=== PATIENT | female | born 1980 | race African-American/Black ===

== ENCOUNTER 2024-04-24 19:10 | Inpatient (IN) | payer OTHER, SELFPAY ==
[2024-04-24 21:18] LABS: Hematocrit 38.7 % (36.0-47.0); Hemoglobin 12.8 g/dL (12.0-16.0); Mean Corpuscular HGB CONC 33.1 g/dL (32.0-36.0); Mean Corpuscular Hemoglobin 30.8 pg (27.0-31.0); Platelet Count 190 10x3/uL (130-400); RBC Distribution Width 13.6 % (11.5-14.5); Red Blood Cell (RBC) Count 4.16 mill/uL (4.20-5.40)
[2024-04-24 21:31] LABS: ALT (SGPT) 13 U/L (8-55); AST (SGOT) 12 U/L (5-34); Albumin 3.7 g/dL (3.5-5.0); Alkaline Phosphatase 49 U/L (40-110); Anion Gap 19 mmol/L (10-20); BUN (Urea Nitrogen) 8 mg/dL (7.0-18.7); Bilirubin, Total 0.5 mg/dL (0.2-1.2); Calc. Creatinine Clearance 0 mL/min (70-130); Calcium 9.8 mg/dL (7.8-10.44); Carbon Dioxide 17 mmol/L (22-29); Chloride 108 mmol/L (98-107); Estimated GFR 92; Glucose 97 mg/dL (70-105); Potassium 4.5 mmol/L (3.5-5.1); Protein, Total 7.7 g/dL (6.0-8.3); Sodium 139 mmol/L (136-145)
[2024-04-24 22:04] LABS: Band 1 % (5-11); Lymphocytes 10 % (21-51); Monocytes 4 % (0-10); Neutrophil 85 % (42-75); Platelet Adequacy Comment Platelets Normal; Polychromasia SLIGHT = 2-3 cells HPF (0-2); Tear Drops SLIGHT = 2-5 cells HPF (0-1)
[2024-04-25] MEDS ORDERED: fentaNYL 50 mcg/mL 1 mL Vial ONE (01:55)
[2024-04-25] MEDS ORDERED: Ketorolac Tromethamine 30 MG (1 mL) VIAL ONE (01:56)
[2024-04-25] MEDS ORDERED: Cefepime 1 GM VIAL ONE (02:44)
[2024-04-25] MEDS ORDERED: Sodium Chloride 0.9% 100 ML ONE (02:45)
[2024-04-25 03:33] VITALS: BMI 33.3
[2024-04-25] MEDS: Vancomycin (BATCH) 2.5 GM in Premix 1 BAG IVPB SCH (05:01)
[2024-04-25] MEDS ORDERED: Ondansetron ODT 4 MG TAB PO PRN (05:11)
[2024-04-25] MEDS ORDERED: Ondansetron PF 4 MG/2 ML Vial IVP PRN (05:11)
[2024-04-25] MEDS ORDERED: Acetaminophen 650 MG Suppository PR PRN (05:11)
[2024-04-25 05:55] LABS: #Basophils Less than 0.03 10x3/uL (0.0-0.2); %Basophils 0.2 % (0.0-1.0); %Eosinophils 0.4 % (0.0-10.0); %Lymphocytes 15.6 % (21.0-51.0); %Monocytes 5.8 % (0.0-10.0); %Neutrophils 77.2 % (42.0-75.0); Hematocrit 37.3 % (36.0-47.0); Hemoglobin 12.1 g/dL (12.0-16.0); Mean Corpuscular HGB CONC 32.4 g/dL (32.0-36.0); Mean Corpuscular Hemoglobin 31.2 pg (27.0-31.0); Mean Corpuscular Volume 96.1 fL (78.0-98.0); Mean Platelet Volume 12.1 fL (7.4-10.4); Platelet Count 152 10x3/uL (130-400); RBC Distribution Width 13.7 % (11.5-14.5); Red Blood Cell (RBC) Count 3.88 mill/uL (4.20-5.40)
[2024-04-25 06:07] LABS: Hemoglobin A1c 5.8 % (4.0-6.0)
[2024-04-25 06:09] LABS: Anion Gap 16 mmol/L (10-20); BUN (Urea Nitrogen) 9 mg/dL (7.0-18.7); Calc. Creatinine Clearance 142 mL/min (70-130); Calcium 9.5 mg/dL (7.8-10.44); Carbon Dioxide 20 mmol/L (22-29); Chloride 108 mmol/L (98-107); Estimated GFR 92; Glucose 82 mg/dL (70-105); Potassium 3.5 mmol/L (3.5-5.1); Sodium 140 mmol/L (136-145)
[2024-04-25] MEDS: Cefepime 2 GM VIAL ONE (08:03)
[2024-04-25] MEDS: Enoxaparin 40 MG (0.4 mL) SYRINGE SC SCH (08:03)
[2024-04-25] MEDS: Cefepime 2 GM in Sodium Chloride 0.9% 100 ML IVPB SCH (08:04)
[2024-04-25] MEDS: Acetaminophen 325 MG TAB PO PRN (08:04)
[2024-04-25] MEDS: Ketorolac Tromethamine 30 MG (1 mL) VIAL IVP PRN (10:49)
[2024-04-25] MEDS: Morphine 2 MG/ML VIAL SLOW IVP SCH (11:35)
[2024-04-25] MEDS: predniSONE 20 MG TAB PO SCH (16:49)
[2024-04-25] MEDS ORDERED: Vancomycin (BATCH) 1.25 GM in Premix 1 BAG IVPB SCH (17:00)
[2024-04-25] MEDS: Vancomycin (BATCH) 1.5 GM in Premix 1 BAG IVPB SCH (17:20)
[2024-04-25] MEDS: Acetaminophen/Codeine 30-300mg Tablet PO SCH (20:15)
[2024-04-25] MEDS: Acetaminophen 325 MG TAB PO SCH (20:16)
[2024-04-26 06:05] LABS: #Basophils Less than 0.03 10x3/uL (0.0-0.2); #Eosinphils Less than 0.03 10x3/uL (0.0-0.7); %Basophils 0.2 % (0.0-1.0); %Eosinophils 0.1 % (0.0-10.0); %Lymphocytes 11.2 % (21.0-51.0); %Monocytes 3.8 % (0.0-10.0); %Neutrophils 84.3 % (42.0-75.0); Hematocrit 34.6 % (36.0-47.0); Hemoglobin 11.4 g/dL (12.0-16.0); Mean Corpuscular HGB CONC 32.9 g/dL (32.0-36.0); Mean Corpuscular Hemoglobin 31.3 pg (27.0-31.0); Mean Corpuscular Volume 95.1 fL (78.0-98.0); Mean Platelet Volume 12.5 fL (7.4-10.4); Platelet Count 146 10x3/uL (130-400); RBC Distribution Width 13.4 % (11.5-14.5); Red Blood Cell (RBC) Count 3.64 mill/uL (4.20-5.40)
[2024-04-26 06:16] LABS: Vancomycin, Random 15.9 ug/mL (See Comment)
[2024-04-26 06:22] LABS: Anion Gap 13 mmol/L (10-20); BUN (Urea Nitrogen) 12 mg/dL (7.0-18.7); Calc. Creatinine Clearance 147 mL/min (70-130); Calcium 8.9 mg/dL (7.8-10.44); Carbon Dioxide 20 mmol/L (22-29); Chloride 108 mmol/L (98-107); Estimated GFR 96; Glucose 102 mg/dL (70-105); Potassium 4.1 mmol/L (3.5-5.1); Sodium 137 mmol/L (136-145)
[2024-04-26] MEDS: predniSONE 20 MG TAB PO SCH (08:28)
[2024-04-26] MEDS: Morphine 2 MG/ML VIAL SLOW IVP PRN (11:57)
[2024-04-26] MEDS: Acetaminophen/Codeine 30-300mg Tablet PO PRN (14:41)
[2024-04-26 15:37] VITALS: BMI 33.3
[2024-04-27 04:53] LABS: #Basophils 0.04 10x3/uL (0.0-0.2); %Basophils 0.4 % (0.0-1.0); %Eosinophils 0.4 % (0.0-10.0); %Lymphocytes 16.7 % (21.0-51.0); %Monocytes 5.8 % (0.0-10.0); %Neutrophils 76.2 % (42.0-75.0); Hematocrit 35.1 % (36.0-47.0); Hemoglobin 11.6 g/dL (12.0-16.0); Mean Corpuscular Hemoglobin 30.6 pg (27.0-31.0); Mean Corpuscular Volume 92.6 fL (78.0-98.0); Mean Platelet Volume 12.2 fL (7.4-10.4); Platelet Count 144 10x3/uL (130-400); RBC Distribution Width 13.4 % (11.5-14.5); Red Blood Cell (RBC) Count 3.79 mill/uL (4.20-5.40)
[2024-04-27 05:14] LABS: Anion Gap 14 mmol/L (10-20); Calc. Creatinine Clearance 157 mL/min (70-130); Calcium 8.6 mg/dL (7.8-10.44); Carbon Dioxide 20 mmol/L (22-29); Chloride 110 mmol/L (98-107); Estimated GFR 104; Glucose 82 mg/dL (70-105); Potassium 3.5 mmol/L (3.5-5.1); Sodium 140 mmol/L (136-145)
[2024-04-27 05:26] LABS: BUN (Urea Nitrogen) 8 mg/dL (7.0-18.7)
[2024-04-27] MEDS: traMADol HCl 50 MG TAB PO PRN (19:28)
[2024-04-28 06:15] LABS: Anion Gap 13 mmol/L (10-20); BUN (Urea Nitrogen) 7 mg/dL (7.0-18.7); Calc. Creatinine Clearance 164 mL/min (70-130); Calcium 8.6 mg/dL (7.8-10.44); Carbon Dioxide 21 mmol/L (22-29); Chloride 105 mmol/L (98-107); Estimated GFR 109; Glucose 80 mg/dL (70-105); Potassium 3.4 mmol/L (3.5-5.1); Sodium 136 mmol/L (136-145)
[2024-04-28 07:33] LABS: #Basophils 0.04 10x3/uL (0.0-0.2); %Basophils 0.4 % (0.0-1.0); %Eosinophils 0.6 % (0.0-10.0); %Lymphocytes 19.9 % (21.0-51.0); %Monocytes 7.3 % (0.0-10.0); %Neutrophils 70.7 % (42.0-75.0); Hematocrit 36.1 % (36.0-47.0); Hemoglobin 11.7 g/dL (12.0-16.0); Mean Corpuscular HGB CONC 32.4 g/dL (32.0-36.0); Mean Corpuscular Volume 95.5 fL (78.0-98.0); Mean Platelet Volume 12.4 fL (7.4-10.4); Platelet Count 137 10x3/uL (130-400); RBC Distribution Width 13.6 % (11.5-14.5); Red Blood Cell (RBC) Count 3.78 mill/uL (4.20-5.40)
[2024-04-28] MEDS: Potassium Chloride 20 MEQ TAB PO SCH (09:42)
[2024-04-28] MEDS ORDERED: diphenhydrAMINE 25 MG CAP PO PRN (19:01)
[2024-04-29 06:57] LABS: #Basophils 0.04 10x3/uL (0.0-0.2); %Basophils 0.3 % (0.0-1.0); %Eosinophils 0.7 % (0.0-10.0); %Lymphocytes 16.6 % (21.0-51.0); %Monocytes 5.5 % (0.0-10.0); %Neutrophils 76.4 % (42.0-75.0); Mean Corpuscular HGB CONC 33.3 g/dL (32.0-36.0); Mean Corpuscular Hemoglobin 30.8 pg (27.0-31.0); Mean Corpuscular Volume 92.3 fL (78.0-98.0); Mean Platelet Volume 12.8 fL (7.4-10.4); Platelet Count 160 10x3/uL (130-400); RBC Distribution Width 13.6 % (11.5-14.5)
[2024-04-29 07:42] LABS: Anion Gap 15 mmol/L (10-20); BUN (Urea Nitrogen) 9 mg/dL (7.0-18.7); Calc. Creatinine Clearance 157 mL/min (70-130); Calcium 8.9 mg/dL (7.8-10.44); Carbon Dioxide 21 mmol/L (22-29); Chloride 108 mmol/L (98-107); Estimated GFR 104; Glucose 101 mg/dL (70-105); Potassium 3.5 mmol/L (3.5-5.1); Sodium 140 mmol/L (136-145)
[2024-04-29 12:09] VITALS: BP 135/91; TEMP 97.2
== END 2024-04-29 15:42 | disposition home or self-care (01) | DRG 603 ==
LOC: ERS 19:10 → SURG A 04-25 02:33
PROVIDERS: ADMIT Student in an Organized Health Care Education/Training Program; ATTEND Internal Medicine
DX: L88 Pyoderma gangrenosum (principal); M33.13 Other dermatomyositis without myopathy; L97.929 Non-pressure chronic ulcer of unspecified part of left lower leg with unspecified severity; B96.5 Pseudomonas (aeruginosa) (mallei) (pseudomallei) as the cause of diseases classified elsewhere; B95.61 Methicillin susceptible Staphylococcus aureus infection as the cause of diseases classified elsewhere; E87.6 Hypokalemia; D72.829 Elevated white blood cell count, unspecified; M19.90 Unspecified osteoarthritis, unspecified site; Z79.52 Long term (current) use of systemic steroids; Z87.891 Personal history of nicotine dependence
CPT/HCPCS: 36415; 80048; 80053; 80202; 83036; 83605; 85025; 87040; 87070; 87077; 87186; 87205; 96374; 96375; 97139; J0692; J1650; J1885; J2272; J3010; J3370; J3490; J7512

== ENCOUNTER 2024-11-13 06:21 | Observation (INO) | payer SELFPAY ==
[2024-11-13] MEDS ORDERED: Senokot S 8.6-50 MG TAB PO PRN (08:13)
[2024-11-13] MEDS ORDERED: Bisacodyl 5 MG TAB PO PRN (08:13)
[2024-11-13] MEDS ORDERED: Calcium Carbonate 500 MG ChewTAB PO PRN (08:13)
[2024-11-13] MEDS ORDERED: Acetaminophen 650 MG Suppository PR PRN (08:13)
[2024-11-13] MEDS ORDERED: Bisacodyl 10 MG SUPP PR PRN (08:13)
[2024-11-13] MEDS: Famotidine/PF 20 mg/2ml Vial SLOW IVP SCH (08:44)
[2024-11-13] MEDS: Lactated Ringer's 1,000 ML IV SCH (08:44)
[2024-11-13] MEDS: Ondansetron PF 4 MG/2 ML Vial IVP PRN (08:52)
[2024-11-13 10:00] LABS: Actual Bicarbonate (HCO3v) 16.7 mEq/L (22-28); Base Excess -6.1 mEq/L (-2.0 to +3.0); Chloride (VBG) 103 mmol/L (98-106); Hematocrit-VBG 41 % (36.0-47.0); Potassium (VBG) 3.91 mmol/L (3.70-5.30); Sodium 135 mmol/L (133-146); pH (venous) 7.417 (7.32-7.43)
[2024-11-13 10:19] VITALS: BMI 33.4
[2024-11-13] MEDS ORDERED: Cosyntropin 250 MCG VIAL SLOW IVP SCH (13:15)
[2024-11-13 14:05] LABS: Lactic Acid 1.71 mmol/L (0.5-2.2)
[2024-11-13 14:33] LABS: Free T4 (Free Thyroxine) 0.93 ng/dL (0.70-1.48)
[2024-11-13] MEDS: Promethazine HCl 25 MG in Sodium Chloride 0.9% 50 ML IVPB PRN (14:45)
[2024-11-13] MEDS: Acetaminophen 325 MG TAB PO PRN (16:24)
[2024-11-13] MEDS: Ketorolac Tromethamine 30 MG (1 mL) VIAL IVP PRN (22:20)
[2024-11-14 06:17] LABS: ALT (SGPT) 14 U/L (8-55); AST (SGOT) 16 U/L (5-34); Albumin 2.8 g/dL (3.5-5.0); Alkaline Phosphatase 29 U/L (40-110); Anion Gap 14 mmol/L (10-20); BUN (Urea Nitrogen) 5 mg/dL (7.0-18.7); Bilirubin, Total 0.8 mg/dL (0.2-1.2); Calc. Creatinine Clearance 133 mL/min (70-130); Calcium 8.1 mg/dL (7.8-10.44); Carbon Dioxide 20 mmol/L (22-29); Chloride 108 mmol/L (98-107); Estimated GFR 85; Globulin 3.3 g/dL (2.4-3.5); Glucose 70 mg/dL (70-105); Potassium 3.5 mmol/L (3.5-5.1); Protein, Total 6.1 g/dL (6.0-8.3); Sodium 138 mmol/L (136-145)
[2024-11-14 06:25] LABS: #Basophils Less than 0.03 10x3/uL (0.0-0.2); %Basophils 0.2 % (0.0-1.0); %Eosinophils 0.7 % (0.0-10.0); %Lymphocytes 8.8 % (21.0-51.0); %Monocytes 4.9 % (0.0-10.0); Hematocrit 36.4 % (36.0-47.0); Hemoglobin 12.1 g/dL (12.0-16.0); Mean Corpuscular HGB CONC 33.2 g/dL (32.0-36.0); Mean Corpuscular Hemoglobin 31.3 pg (27.0-31.0); Mean Corpuscular Volume 94.3 fL (78.0-98.0); Mean Platelet Volume 12.3 fL (7.4-10.4); Platelet Count 99 10x3/uL (130-400); RBC Distribution Width 14.4 % (11.5-14.5); Red Blood Cell (RBC) Count 3.86 mill/uL (4.20-5.40)
[2024-11-14 06:32] LABS: Hemoglobin A1c 5.9 % (4.0-6.0)
[2024-11-14 07:06] LABS: Anisocytosis SLIGHT = 6-15 cells HPF (0-5); Band 8 % (5-11); Burr Cells SLIGHT = 2-5 cells HPF (0-1); Lymphocytes 9 % (21-51); Monocytes 2 % (0-10); Neutrophil 80 % (42-75); Platelet Adequacy Comment Platelets Decreased; Polychromasia SLIGHT = 2-3 cells HPF (0-2); Reactive Lymphocytes 1 % (0-10)
[2024-11-14] MEDS: Cosyntropin 250 MCG VIAL SLOW IVP SCH (07:53)
[2024-11-14] MEDS: predniSONE 20 MG TAB PO SCH (09:52)
[2024-11-14 11:16] VITALS: BP 139/59; TEMP 97.6
[2024-11-15] MEDS ORDERED: predniSONE 20 MG TAB PO SCH (08:00)
== END 2024-11-14 11:15 | disposition home or self-care (01) ==
LOC: INTOOBSV 08:02 → T4-A 08:02
PROVIDERS: ADMIT Family Medicine; ATTEND Internal Medicine
DX: A08.4 Viral intestinal infection, unspecified (principal); E05.90 Thyrotoxicosis, unspecified without thyrotoxic crisis or storm; M33.13 Other dermatomyositis without myopathy; F17.210 Nicotine dependence, cigarettes, uncomplicated; F12.10 Cannabis abuse, uncomplicated; Z79.899 Other long term (current) drug therapy
CPT/HCPCS: 36415; 80053; 80400; 82533; 82805; 83036; 83605; 83735; 84439; 84443; 84481; 85025; 87040; 93005; 93010; 96374; 96375; 96376; G0378; J0834; J1885; J2405; J2550; J3490; J7120; J7512